=== PATIENT | male | born 1950 | race Two or more races ===

== ENCOUNTER 2018-08-29 09:11 | Emergency (ER) | payer MEDICARE, MEDICAID ==
[~2018-08-29] VITALS: Ht 167.6 cm; Wt 77.3 kg
[2018-08-29] MEDS ORDERED: LORazepam 2 MG/ML, 1ML ONE (09:27)
[2018-08-29] MEDS ORDERED: ASPIRIN 81 MG TABLET CHEW ONE (09:27)
[2018-08-29] MEDS ORDERED: ASPIRIN 81 MG TABLET CHEW PO ONE (09:30)
[2018-08-29] MEDS ORDERED: SODIUM CHLORIDE FLUSH 10ML SYR IVF ONE (09:30)
[2018-08-29] MEDS ORDERED: LORazepam 2 MG/ML, 1ML IVPush ONE (09:30)
[2018-08-29 09:54] LABS: BASOPHILS # (AUTO) 0.01 x10^3/uL (0-0.1); BASOPHILS % (AUTO) 0 % (0-1); EOSINOPHILS # (AUTO) 0.22 x10^3/uL (0-0.4); EOSINOPHILS % (AUTO) 3 % (1-7); LYMPHOCYTES # (AUTO) 3.11 x10^3/uL (1-3.4); LYMPHOCYTES % (AUTO) 46 % (22-44); MD NO; MEAN CORPUSCULAR HEMOGLOBIN 26.6 pg (27.5-34.5); MEAN CORPUSCULAR HGB CONC 33.2 g/dL (33.2-36.2); MEAN CORPUSCULAR VOLUME 79.9 fL (81-97); MEAN PLATELET VOLUME 8.2 fL (7.4-10.4); MONOCYTES # (AUTO) 0.48 x10^3/uL (0.2-0.8); MONOCYTES % (AUTO) 7 % (2-9); NEUTROPHILS # (AUTO) 2.94 x10^3/uL (1.8-6.8); NEUTROPHILS % (AUTO) 44 % (42-75); PLATELET COUNT 195 x10^3/uL (130-400); RED BLOOD COUNT 5.66 x10^6/uL (4.38-5.82); RED CELL DISTRIBUTION WIDTH 18.1 % (9.4-14.8)
[2018-08-29 10:06] LABS: ALBUMIN 3.7 g/dL (3.4-5.0); ANION GAP 6 mmol/L (5-15); CALCIUM 8.6 mg/dL (8.5-10.1); CHLORIDE 114 mmol/L (98-107)
--- NOTE | 2018-08-29 10:08 | NUR ---
LATE NOTE ENTRY FOR 0916: Pt brought in by EMS with c/o, "I have severe anxiety and chest pain. My 9 months ago from liver cancer. I had a pace maker put in in [place], [place]." NADN. Pt connected to all monitors. Pt NSR, AOX4, and unlabored respirations equal bilaterally. PIV placed in left hand and medications provided per [facility]AR. All safety measures in place. Pt requesting RN to call pt's cousing in [place].
[2018-08-29 10:09] LABS: TROPONIN I < 0.015 ng/mL (0.000-0.045)
--- NOTE | 2018-08-29 10:37 | NUR ---
Pt gives verbal permission to speak to his cousin Mayco. Mayco called and asked about pt. Updated Mayco. All questions answered. Mayco stated verbal understanding.
[2018-08-29 11:13] VITALS: BP 121/75
--- NOTE | 2018-08-29 11:14 | NUR ---
Pt sleeping on gurney. Pt awakes to verbal stimuli. Pt begins crying. Pt stops crying and answers health care questions. NADN. All safety measures in place. Call light within reach. Pt connected to all monitors. No needs requested at this time.
== END 2018-08-29 12:12 | disposition home or self-care (01) ==
LOC: ED 10:14
DX: F41.1 Generalized anxiety disorder (principal); R07.89 Other chest pain; F10.120 Alcohol abuse with intoxication, uncomplicated
CPT/HCPCS: 36415; 71045; 80048; 82040; 84484; 85025; 93005; 96374; 99284; J2060